=== PATIENT | male | born 1980 | race Caucasian/White ===

== ENCOUNTER → 2021-07-24 | Outpatient (CLI) | payer BC ==
[~2021-07-24] MED LIST: BACTROBAN NASAL1 G1 TOP; IBUPROFEN600 MG PO; KEFLEX CAP 500500 MG PO
== END ==
LOC: CT 11:30
DX: R09.1 Pleurisy (principal)
CPT/HCPCS: Q9967

== ENCOUNTER → 2022-01-04 | Outpatient (CLI) | payer BC | LOC: CT 14:00 | DX: R91.8 Other nonspecific abnormal finding of lung field (principal) | CPT/HCPCS: 36415; 71260; 82565; Q9967 ==

== ENCOUNTER → 2022-06-16 | Outpatient (CLI) | payer BC | LOC: EXRD 10:50 | DX: R91.1 Solitary pulmonary nodule (principal); J98.11 Atelectasis | CPT/HCPCS: 71046; 73630 ==

== ENCOUNTER → 2022-06-24 | Outpatient (CLI) | payer BC | LOC: KOH-I 08:21 | DX: R10.9 Unspecified abdominal pain (principal); N20.0 Calculus of kidney | CPT/HCPCS: 74176 ==

== ENCOUNTER → 2022-08-03 | Outpatient (CLI) | payer BC | LOC: HEART 5 13:30 | DX: J69.0 Pneumonitis due to inhalation of food and vomit (principal) | CPT/HCPCS: 94010; 94729 ==